=== PATIENT | male | born 1970 | race Caucasian/White ===

== ENCOUNTER 2017-10-08 04:29 | Inpatient (IN) | END 2017-10-09 17:30 | disposition home health service (06) | DRG 313 ==

== ENCOUNTER 2017-10-20 13:48 | Emergency (ER) | END 2017-10-20 18:00 | disposition home or self-care (01) ==

== ENCOUNTER 2017-11-18 11:04 | Emergency (ER) | END 2017-11-18 14:14 | disposition home or self-care (01) ==

== ENCOUNTER 2018-02-11 13:35 | Emergency (ER) | END 2018-02-11 20:20 | disposition home or self-care (01) ==

== ENCOUNTER 2018-12-15 20:56 | Inpatient (IN) | payer MEDICAID ==
[~2018-12-15] VITALS: Ht 180.3 cm; Wt 97.0 kg
[~2018-12-15 20:56] MED LIST: CARI350T29 PO; DULO60CA6 PO; EMTR1TAB11 PO; GABA300C16 PO; HYDR25TA6 PO; HYDR4TAB51 PO; LACT20SO2 PO; OXYC-279 PO
[2018-12-15] MEDS ORDERED: ONDANSETRON 4 MG INJ IV STA (21:48)
[2018-12-15] MEDS ORDERED: SOD CHLORIDE 0.9% 1,000 ML IV ONE (22:00)
[2018-12-15] MEDS ORDERED: ACETAMINOPHEN 325 MG TAB PO ONE (22:00)
[2018-12-15] MEDS ORDERED: IBUPROFEN 600 MG TAB PO ONE (22:00)
[2018-12-16] MEDS ORDERED: ENALAPRILAT 1.25 MG INJ IV ONE
[2018-12-16] MEDS ORDERED: OXYCODONE/ACETAMINOPHEN (5/325) TAB PO ONE
[2018-12-16] MEDS ORDERED: KETOROLAC 15 MG INJ IV STA (02:46)
[2018-12-16] MEDS ORDERED: ONDANSETRON 4 MG INJ IV STA (06:33)
[2018-12-16] MEDS ORDERED: morphine 4 MG/ML VIAL IV STA (06:33)
[2018-12-16] MEDS ORDERED: HYDROmorphONE 2 MG/ML SYG IV STA (09:45)
[2018-12-16] MEDS ORDERED: ONDANSETRON 4 MG INJ IV PRN (10:30)
[2018-12-16] MEDS ORDERED: NACL 0.9% 3 ML SYG IV SCH (10:30)
[2018-12-16] MEDS ORDERED: hydrALAzine 20 MG INJ IV PRN (10:30)
[2018-12-16] MEDS ORDERED: ACETAMINOPHEN 325 MG TAB PO PRN (10:30)
[2018-12-16] MEDS: GABAPENTIN 300 MG CAP PO SCH ×2 (11:04→21:15)
[2018-12-16] MEDS: LACTULOSE 30ML CUP PO SCH ×2 (11:04→21:00)
[2018-12-16] MEDS: DULOXETINE 30 MG CAP DR PO SCH (11:04)
[2018-12-16] MEDS: HYDROCHLOROTHIAZIDE 25 MG TAB PO SCH (11:04)
[2018-12-16] MEDS: SOD CHLORIDE 0.9% 1,000 ML IV SCH ×2 (11:10→20:12)
[2018-12-16 11:30] VITALS: Ht 180.3 cm; Wt 97.0 kg
[2018-12-16 11:50] VITALS: BP 134/93; PULSE 89; RESP 18
[2018-12-16] MEDS: HYDROmorphONE 0.5 MG/0.5 ML SYG IV PRN ×2 (14:39→18:59)
[2018-12-16 16:13] VITALS: BP 137/95; PULSE 85; RESP 19
[2018-12-16 20:28] VITALS: BP 122/79; PULSE 101; RESP 18
[2018-12-16] MEDS: CARISOPRODOL 350 MG TAB PO PRN (22:54)
[2018-12-17] VITALS (24 sets, daily range): BP systolic 105–160; BP diastolic 68–97; PULSE 88–102; RESP 15–29
[2018-12-17] MEDS: HYDROmorphONE 0.5 MG/0.5 ML SYG IV PRN ×2 (00:05→05:05)
[2018-12-17] MEDS: SOD CHLORIDE 0.9% 1,000 ML IV SCH ×3 (07:10→18:09)
[2018-12-17] MEDS: HYDROmorphONE 2 MG/ML SYG IV PRN ×2 (08:39→13:10)
[2018-12-17] MEDS: DULOXETINE 30 MG CAP DR PO SCH (08:42)
[2018-12-17] MEDS: HYDROCHLOROTHIAZIDE 25 MG TAB PO SCH (08:43)
[2018-12-17] MEDS: LACTULOSE 30ML CUP PO SCH ×3 (08:44→21:00)
[2018-12-17] MEDS: GABAPENTIN 300 MG CAP PO SCH ×2 (08:44→21:26)
[2018-12-17] MEDS ORDERED: ENOXAPARIN 40 MG/0.4 ML SYG SC SCH (09:00)
[2018-12-17] MEDS ORDERED: MAGNESIUM SULFATE 2 GM/50 ML 50 ML IVPB ONE (10:00)
[2018-12-17] MEDS: LORAZEPAM 2 MG INJ IV PRN ×2 (11:28→18:41)
[2018-12-17] MEDS ORDERED: EPHEDrine 25 MG/5 ML SYG ONE (15:00)
[2018-12-17] MEDS ORDERED: MIDAZOLAM 1 MG/ML 2 ML INJ ONE (15:00)
[2018-12-17] MEDS ORDERED: PROPOFOL 20 ML ONE (15:00)
[2018-12-17] MEDS ORDERED: DESFLURANE 15 MIN ONE (15:00)
[2018-12-17] MEDS ORDERED: PHENYLephrine (100 MCG/ML) 10ML SYG ONE (15:00)
[2018-12-17] MEDS ORDERED: METOPROLOL 5 MG INJ ONE (15:00)
[2018-12-17] MEDS ORDERED: METOCLOPRAMIDE 10 MG INJ ONE (15:05)
[2018-12-17] MEDS ORDERED: morphine SULFATE/PF (10 MG/10 ML) INJ ONE (15:06)
[2018-12-17] MEDS ORDERED: FENTAnyl 50 MCG/ML VIAL ONE (15:09)
[2018-12-17] MEDS ORDERED: SOD CHLORIDE 0.9% 250 ML IV* ONE (17:29)
[2018-12-17] MEDS ORDERED: ROCURONIUM 50 MG INJ ONE ×3 (17:30→17:34)
[2018-12-17] MEDS ORDERED: ROPIVACAINE 0.2% 20 ML VIAL ONE (17:30)
[2018-12-17] MEDS ORDERED: oxyCODONE 5 MG TAB PO PRN (18:30)
[2018-12-17] MEDS ORDERED: NACL 0.9% 3 ML SYG IV SCH (18:30)
[2018-12-17] MEDS ORDERED: CEFAZOLIN 1 GM/50 ML (PMX) 0 ML IVPB ONE (18:56)
[2018-12-17] MEDS ORDERED: LORAZEPAM 2 MG INJ IV PRN (19:00)
[2018-12-17] MEDS ORDERED: MEPERIDINE 25 MG INJ IV PRN (19:00)
[2018-12-17] MEDS ORDERED: MIDAZOLAM 1 MG/ML 2 ML INJ IV PRN (19:00)
[2018-12-17] MEDS ORDERED: FENTAnyl 50 MCG/ML VIAL IV PRN ×3 (19:00)
[2018-12-17] MEDS ORDERED: KETOROLAC 30 MG INJ IV PRN (19:00)
[2018-12-17] MEDS ORDERED: OXYCODONE/ACETAMINOPHEN (5/325) TAB PO PRN ×2 (19:00)
[2018-12-17] MEDS ORDERED: ONDANSETRON 4 MG INJ IV PRN (19:00)
[2018-12-17] MEDS ORDERED: HYDROmorphONE 1 MG/5 ML IV SYRINGE IV PRN ×3 (19:00)
[2018-12-17] MEDS: CEFAZOLIN 2 GM/50 ML (PMX) 50 ML IVPB SCH (20:43)
[2018-12-18] VITALS: BP 141/99; PULSE 104; RESP 20
[2018-12-18] MEDS: HYDROmorphONE 1 MG/ML SYG IV PRN ×3 (01:12→10:29)
[2018-12-18] MEDS: CEFAZOLIN 2 GM/50 ML (PMX) 50 ML IVPB SCH ×2 (03:12→11:00)
[2018-12-18] MEDS: LORAZEPAM 2 MG INJ IV PRN (03:54)
[2018-12-18 04:06] VITALS: BP 161/97; PULSE 95; RESP 20
[2018-12-18] MEDS: HYDROmorphONE 2 MG/ML SYG IV PRN ×6 (04:53→21:16)
[2018-12-18] MEDS: SOD CHLORIDE 0.9% 1,000 ML IV SCH (06:39)
[2018-12-18 07:48] VITALS: BP 165/93; PULSE 107; RESP 21
[2018-12-18] MEDS: LACTULOSE 30ML CUP PO SCH ×2 (08:28→21:14)
[2018-12-18] MEDS: DULOXETINE 30 MG CAP DR PO SCH (08:29)
[2018-12-18] MEDS: GABAPENTIN 300 MG CAP PO SCH ×2 (08:29→21:14)
[2018-12-18] MEDS: HYDROCHLOROTHIAZIDE 25 MG TAB PO SCH (08:30)
[2018-12-18] MEDS: ENOXAPARIN 40 MG/0.4 ML SYG SC SCH (08:31)
[2018-12-18] MEDS ORDERED: MAGNESIUM SULFATE 2 GM/50 ML 50 ML IVPB ONE (11:00)
[2018-12-18 12:13] VITALS: BP 122/86; PULSE 108; RESP 18
[2018-12-18 14:20] VITALS: BP 134/79; PULSE 105; RESP 18
[2018-12-18 20:09] VITALS: BP 111/65; PULSE 74; RESP 18
[2018-12-19] MEDS: HYDROmorphONE 2 MG/ML SYG IV PRN ×7 (00:21→21:22)
[2018-12-19] MEDS: CARISOPRODOL 350 MG TAB PO PRN ×2 (01:59→19:52)
[2018-12-19 02:05] VITALS: BP 111/65; PULSE 98; RESP 18
[2018-12-19] MEDS: LACTULOSE 30ML CUP PO SCH ×2 (08:16→20:51)
[2018-12-19] MEDS: LORAZEPAM 2 MG INJ IV PRN (08:16)
[2018-12-19 08:23] VITALS: BP 117/65; PULSE 101; RESP 16
[2018-12-19] MEDS: DULOXETINE 30 MG CAP DR PO SCH (08:23)
[2018-12-19] MEDS: GABAPENTIN 300 MG CAP PO SCH ×2 (08:23→20:51)
[2018-12-19] MEDS: ENOXAPARIN 40 MG/0.4 ML SYG SC SCH (08:23)
[2018-12-19] MEDS: HYDROCHLOROTHIAZIDE 25 MG TAB PO SCH (08:24)
[2018-12-19 14:48] VITALS: BP 97/58; PULSE 95; RESP 16
[2018-12-19 17:53] VITALS: BP 125/72; PULSE 97
[2018-12-19 20:10] VITALS: BP 114/68; PULSE 103; RESP 18
[2018-12-20] MEDS: HYDROmorphONE 2 MG/ML SYG IV PRN ×4 (01:13→21:48)
[2018-12-20] MEDS: HYDROmorphONE 1 MG/ML SYG IV PRN (01:50)
[2018-12-20 02:26] VITALS: BP 114/69; PULSE 98; RESP 19
[2018-12-20] MEDS: LORAZEPAM 2 MG INJ IV PRN (04:11)
[2018-12-20] MEDS: CARISOPRODOL 350 MG TAB PO PRN ×2 (04:12→19:56)
[2018-12-20 08:00] VITALS: BP 118/71; PULSE 96; RESP 17
[2018-12-20] MEDS: GABAPENTIN 300 MG CAP PO SCH ×2 (09:34→20:30)
[2018-12-20] MEDS: ENOXAPARIN 40 MG/0.4 ML SYG SC SCH (09:34)
[2018-12-20] MEDS: LACTULOSE 30ML CUP PO SCH ×2 (09:35→20:30)
[2018-12-20] MEDS: DULOXETINE 30 MG CAP DR PO SCH (09:35)
[2018-12-20] MEDS: HYDROCHLOROTHIAZIDE 25 MG TAB PO SCH (09:35)
[2018-12-20 15:28] VITALS: BP 121/73; PULSE 87; RESP 19
[2018-12-20] MEDS ORDERED: PENDING SANTYL ORDER FOR WOUND CARE XX PRN (18:00)
[2018-12-20 20:00] VITALS: BP 119/70; PULSE 96; RESP 18
[2018-12-21] MEDS: HYDROmorphONE 1 MG/ML SYG IV PRN (00:22)
[2018-12-21 02:00] VITALS: BP 109/63; PULSE 91; RESP 17
[2018-12-21] MEDS: HYDROmorphONE 2 MG/ML SYG IV PRN ×5 (02:07→20:45)
[2018-12-21 08:32] VITALS: BP 113/75; PULSE 62; RESP 17
[2018-12-21] MEDS: LACTULOSE 30ML CUP PO SCH ×3 (09:00→20:45)
[2018-12-21] MEDS: DULOXETINE 30 MG CAP DR PO SCH (09:39)
[2018-12-21] MEDS: GABAPENTIN 300 MG CAP PO SCH ×2 (09:39→20:45)
[2018-12-21] MEDS: HYDROCHLOROTHIAZIDE 25 MG TAB PO SCH (09:40)
[2018-12-21] MEDS: ENOXAPARIN 40 MG/0.4 ML SYG SC SCH (09:42)
[2018-12-21] MEDS ORDERED: POTASSIUM CHLORIDE (SR) 20 MEQ TAB PO STA (09:51)
[2018-12-21] MEDS ORDERED: MAGNESIUM SULFATE 2 GM/50 ML 50 ML IVPB ONE ×2 (10:00→11:00)
[2018-12-21 14:18] VITALS: BP 118/76; PULSE 88; RESP 18
[2018-12-21 20:00] VITALS: BP 129/78; PULSE 86; RESP 18
[2018-12-21] MEDS: CARISOPRODOL 350 MG TAB PO PRN (20:45)
[2018-12-22] MEDS: HYDROmorphONE 2 MG/ML SYG IV PRN ×4 (00:28→13:37)
[2018-12-22 02:00] VITALS: BP 116/75; PULSE 92; RESP 17
[2018-12-22] MEDS: LORAZEPAM 2 MG INJ IV PRN (02:57)
[2018-12-22] MEDS: CARISOPRODOL 350 MG TAB PO PRN ×2 (06:21→18:38)
[2018-12-22 08:00] VITALS: BP 119/74; PULSE 90; RESP 16
[2018-12-22] MEDS: ENOXAPARIN 40 MG/0.4 ML SYG SC SCH (08:36)
[2018-12-22] MEDS: DULOXETINE 30 MG CAP DR PO SCH (08:36)
[2018-12-22] MEDS: LACTULOSE 30ML CUP PO SCH ×2 (08:37→21:00)
[2018-12-22] MEDS: GABAPENTIN 300 MG CAP PO SCH ×2 (08:37→21:47)
[2018-12-22] MEDS: HYDROCHLOROTHIAZIDE 25 MG TAB PO SCH (08:37)
[2018-12-22 14:00] VITALS: BP 112/66; PULSE 99; RESP 16
[2018-12-22 20:40] VITALS: BP 112/72; PULSE 94; RESP 16
[2018-12-23] MEDS: HYDROmorphONE 2 MG/ML SYG IV PRN ×4 (00:10→13:28)
[2018-12-23] MEDS: CARISOPRODOL 350 MG TAB PO PRN (02:43)
[2018-12-23 02:58] VITALS: BP 119/72; PULSE 99; RESP 16
[2018-12-23 08:46] VITALS: BP 123/75; PULSE 94; RESP 18
[2018-12-23] MEDS: LACTULOSE 30ML CUP PO SCH (09:00)
[2018-12-23] MEDS: HYDROCHLOROTHIAZIDE 25 MG TAB PO SCH (09:04)
[2018-12-23] MEDS: GABAPENTIN 300 MG CAP PO SCH (09:05)
[2018-12-23] MEDS: DULOXETINE 30 MG CAP DR PO SCH (09:06)
[2018-12-23] MEDS: ENOXAPARIN 40 MG/0.4 ML SYG SC SCH (09:12)
[2018-12-23 14:00] VITALS: BP 119/81; PULSE 89; RESP 20
== END 2018-12-23 16:35 | disposition home or self-care (01) | DRG 469 ==
LOC: FTE 20:56 → TEL 12-16 00:55 → 5EC 12-18 13:49
PROVIDERS: ADMIT Internal Medicine; ATTEND Internal Medicine
PROC: 30233N1 Transfusion of Nonautologous Red Blood Cells into Peripheral Vein, Percutaneous Approach (ICD-10-PCS; 2018-12-17)
PROC: 0SRR0JZ Replacement of Right Hip Joint, Femoral Surface with Synthetic Substitute, Open Approach (ICD-10-PCS; principal; 2018-12-17 14:00)
DX: S72.001A Fracture of unspecified part of neck of right femur, initial encounter for closed fracture (principal); G92 Toxic encephalopathy; I10 Essential (primary) hypertension; G89.4 Chronic pain syndrome; D64.9 Anemia, unspecified; G60.9 Hereditary and idiopathic neuropathy, unspecified; K74.60 Unspecified cirrhosis of liver; W01.0XXA Fall on same level from slipping, tripping and stumbling without subsequent striking against object, initial encounter; Z79.891 Long term (current) use of opiate analgesic
CPT/HCPCS: 36415; 36430; 70450; 71045; 72100; 73500; 73510; 80048; 80053; 80061; 80307; 82140; 83036; 83735; 84100; 84484; 85025; 85610; 85730; 86703; 86850; 86900; 86901; 86920; 88304; 88311; 93005; 96374; 96375; 97110; 97116; 97162; 97530; C1776; J0690; J1170; J1650; J1885; J2060; J2250; J2270; J2274; J2370; J2405; J2765; J2795; J3010; J3475; J7030; J7040; P9016